=== PATIENT | male | born 1960 | race Caucasian/White ===

== ENCOUNTER → 2019-05-18 | Outpatient (CLI) | payer MEDICARE, MEDICAID ==
[~2019-05-18] MED LIST: CATHETER FLUSH 10 ML SYR IV PRN; HOLD METFORMIN - RECEIVED CONTRAST 20 ML VIAL IV SCH; HYDR15SO8 PO; IOHEXOL 350 MG/ML 100 ML (OMNIPAQUE 350) VIAL IV ONE; NS 100 ML (IVPB) BAG IV ONE; OMEP-280 PO; PRED5TAB PO
[2019-05-18 10:42] LABS: BUN/CREATININE RATIO 14; GFR ESTIMATED > 60
--- NOTE | 2019-05-18 14:14 | Diagnostic Imaging Report ---
EXAM: CT SINUS COMPLETE W WO INDICATION: Nasopharyngeal crusted lesion. History of weight loss. COMPARISON: None. FINDINGS: There are some frothy secretions within the left nasopharynx. There is no discrete enhancing mass identified by CT. The parapharyngeal fat planes are preserved. There is mild mucosal thickening in the left maxillary sinus. The frontal sinuses are aplastic. The ostiomeatal units are patent. No large swati bullosa. Mild leftward bowing of the nasal septum. No periapical lucencies about the maxillary dentition. Normal alignment of the temporomandibular joints. The visualized skull base is intact. IMPRESSION: 1. No nasopharyngeal mass is identified by CT. There are frothy secretions along the left nasopharynx. 2. Mild mucosal thickening in the left maxillary sinus without air-fluid levels. Dictated by: Dictated on workstation # [id number]
== END ==
LOC: RAD 10:00
PROVIDERS: ATTEND Otolaryngology Otolaryngology/Facial Plastic Surgery
DX: J34.89 Other specified disorders of nose and nasal sinuses (principal)
CPT/HCPCS: 36415; 70488; 82565; 84520

== ENCOUNTER 2019-06-18 05:33 | Outpatient (CLI) | payer MEDICARE, MEDICAID ==
[~2019-06-18] VITALS: Ht 154 cm; Wt 50.0 kg
[2019-06-18] MEDS ORDERED: OMEP20CA13 PO (10:18)
[2019-06-18] MEDS ORDERED: PRED5TAB PO (10:18)
== END 2019-06-18 10:31 | disposition home or self-care (01) ==
LOC: PREOP 05:33
PROVIDERS: ATTEND Otolaryngology Otolaryngology/Facial Plastic Surgery
DX: Z01.818 Encounter for other preprocedural examination (principal)